=== PATIENT | male | born 1965 | race African-American/Black ===

== ENCOUNTER 2017-07-20 11:05 | Emergency (ER) | payer MEDICARE ==
[~2017-07-20] VITALS: Ht 188 cm; Wt 86.4 kg
[2017-07-20 11:08] VITALS: Ht 188 cm; Wt 86.4 kg
[2017-07-20] MEDS ORDERED: DILANTIN100 MG PO (11:12)
[2017-07-20] MEDS ORDERED: PROVENTIL HFA6.7 GM INH (11:12)
[2017-07-20] MEDS ORDERED: ULTRAM50 MG PO (13:07)
[2017-07-20] MEDS ORDERED: VALIUM 2 MG TAB2 MG PO (13:07)
[2017-07-20 13:35] VITALS: BP 140/82
== END 2017-07-20 13:30 | disposition home or self-care (01) ==
LOC: D.ER 11:05
DX: S16.1XXA Strain of muscle, fascia and tendon at neck level, initial encounter (principal); X58.XXXA Exposure to other specified factors, initial encounter; Y93.89 Activity, other specified; Y92.89 Other specified places as the place of occurrence of the external cause; S29.012A Strain of muscle and tendon of back wall of thorax, initial encounter; M62.838 Other muscle spasm; M54.5 Low back pain; M54.6 Pain in thoracic spine; F17.200 Nicotine dependence, unspecified, uncomplicated

== ENCOUNTER 2018-02-07 17:52 | Emergency (ER) | payer SELFPAY ==
[~2018-02-07] VITALS: Ht 188 cm; Wt 87.3 kg
[~2018-02-07 17:52] MED LIST: DILANTIN100 MG PO; PROVENTIL HFA6.7 GM INH; ULTRAM50 MG PO; VALIUM 2 MG TAB2 MG PO
[2018-02-07 17:53] VITALS: Ht 188 cm; Wt 87.3 kg
[2018-02-07 19:40] VITALS: BP 138/86
== END 2018-02-07 19:42 | disposition home or self-care (01) ==
LOC: D.ER 17:52
DX: T16.2XXA Foreign body in left ear, initial encounter (principal); X58.XXXA Exposure to other specified factors, initial encounter; Y93.89 Activity, other specified; Y92.019 Unspecified place in single-family (private) house as the place of occurrence of the external cause